=== PATIENT | female | born 1955 | race American Indian/Alaskan Native ===

== ENCOUNTER 2018-03-31 14:47 | Emergency (ER) | payer MEDICARE ==
[2018-03-31] MEDS ORDERED: XOPENEX IH ONE (16:21)
[2018-03-31] MEDS ORDERED: SOLU-Medrol IM ONE (16:21)
[2018-03-31] MEDS ORDERED: ATROVENT IH ONE (16:21)
--- NOTE | 2018-03-31 16:26 | Emergency Department Report ---
ED Asthma HPI - General Chief Complaint: Adult Asthma Stated Complaint: PAIN Time Seen by Provider: 03/31/18 16:09 Source: patient Mode of arrival: Ambulatory Limitations: No Limitations - History of Present Illness Initial Comments: Patient is 63 years old female history of asthma. Patient presented to the ER complaining of shortness of breath and wheezing associated with this productive cough greenish sputum for the last 2 weeks. Patient stated that she has been using her inhaler but is not helping. Patient denied any fever, nausea or vomiting. No chest pain. MD Complaint: "asthma attack", shortness of breath, wheezing -: week(s) Severity: moderate Context: recent URI Associated Symptoms: productive cough Treatments Prior to Arrival: inhaled bronchodilator - Related Data Allergies Allergy/AdvReac Type Severity Reaction Status Date / Time No Known Allergies Allergy Unverified 03/31/18 15:21 ED Review of Systems ROS: Stated complaint: PAIN Other details as noted in HPI Comment: All other systems reviewed and negative Constitutional: denies: chills, fever Respiratory: cough, shortness of breath, SOB at rest, wheezing. denies: orthopnea, SOB with exertion, stridor Cardiovascular: denies: chest pain, palpitations Gastrointestinal: denies: abdominal pain, nausea Neurological: denies: headache, weakness, numbness, paresthesias, confusion ED Past Medical Hx - Past Medical History Hx Asthma: Yes - Surgical History Past Surgical History?: No - Social History Smoking Status: Never Smoker Substance Use Type: None ED Physical Exam - General Limitations: No Limitations General appearance: alert, in no apparent distress - Head Head exam: Present: atraumatic, normocephalic, normal inspection - Eye Eye exam: Present: normal appearance - ENT ENT exam: Present: normal exam, normal orophraynx, mucous membranes moist - Neck Neck exam: Present: normal inspection, full ROM. Absent: tenderness, meningismus, lymphadenopathy, thyromegaly - Respiratory Respiratory exam: Present: wheezes, decreased breath sounds, prolonged expiratory. Absent: respiratory distress, rales, rhonchi, stridor - Cardiovascular Cardiovascular Exam: Present: regular rate. Absent: normal rhythm, bradycardia , tachycardia, irregular rhythm, normal heart sounds, systolic murmur, diastolic murmur - GI/Abdominal GI/Abdominal exam: Present: soft, normal bowel sounds. Absent: distended, tenderness, guarding, rebound, rigid, organomegaly, mass, bruit, pulsatile mass , hernia - Extremities Exam Extremities exam: Present: normal inspection, full ROM, normal capillary refill. Absent: tenderness, pedal edema, joint swelling, calf tenderness - Back Exam Back exam: Present: normal inspection, full ROM - Neurological Exam Neurological exam: Present: alert, oriented X3, CN II-XII intact, normal gait, reflexes normal - Skin Skin exam: Present: warm, intact, normal color ED Course Vital Signs 03/31/18 03/31/18 15:21 16:39 Temperature 98.2 F Pulse Rate 99 H Pulse Rate [ 102 H Posterior Bilateral Throughout] Respiratory 16 Rate Respiratory 20 Rate [Posterior Bilateral Throughout] Blood Pressure 210/87 O2 Sat by Pulse 96 Oximetry ED Medical Decision Making - Radiology Data Radiology results: report reviewed Referring Physician: OCTAVIA VALDIVIA Patient Name: MICHAEL LAWSON Date of : 1955 Sex: Female Report Date: 2018-03-31 Report Status: Finalized Findings [address] [address] XRay Report Signed Patient: MICHAEL LAWSON MR#: [id number] : 1955 Acct:[id number] Age/Sex: 63 / F ADM Date: 03/31/18 Loc: ED Attending Dr: Ordering Physician: OCTAVIA VALDIVIA Date of Service: 03/31/18 Procedure(s): XR chest 1V ap Accession Number(s): [id number] cc: OCTAVIA VALDIVIA Fluoro Time In Minutes: FINAL REPORT EXAM: XR CHEST 1V AP HISTORY: sob TECHNIQUE: PA chest x-ray Comparison: None FINDINGS: Normal heart size. Low lung volumes with mild hypoventilatory change at the bases. No focal infiltrate. Hilar contours within normal limits. IMPRESSION: Hypoventilatory changes. No definite acute cardiopulmonary disease. Transcribed By: JUDE Dictated By: SHAMEKA PIÑA Electronically Authenticated By: SHAMEKA PIÑA Signed Date/Time: 03/31/181710 DD/ 10 TD/TT: 03/31/181710 Critical care attestation.: If time is entered above; I have spent that time in minutes in the direct care of this critically ill patient, excluding procedure time. ED Disposition Clinical Impression: Asthma exacerbation, Acute bronchitis Disposition: - TO HOME OR SELFCARE Is pt being admited?: No Condition: Stable Instructions: Asthma (ED), Acute Bronchitis (ED) Referrals: PRIMARY CARE, [Primary Care Provider] - 3-5 Days
[2018-03-31] MEDS ORDERED: PROVENTIL IH ONE ×2 (16:32→16:33)
[2018-03-31] MEDS ORDERED: LEVALBUTEROL IH ONE (16:45)
--- NOTE | 2018-03-31 17:19 | XRay Report ---
FINAL REPORT EXAM: XR CHEST 1V AP HISTORY: sob TECHNIQUE: PA chest x-ray Comparison: None FINDINGS: Normal heart size. Low lung volumes with mild hypoventilatory change at the bases. No focal infiltrate. Hilar contours within normal limits. IMPRESSION: Hypoventilatory changes. No definite acute cardiopulmonary disease.
[2018-03-31 17:48] VITALS: BP 191/80
== END 2018-03-31 17:48 | disposition home or self-care (01) ==
LOC: ED 14:47
DX: J45.901 Unspecified asthma with (acute) exacerbation (principal); J20.9 Acute bronchitis, unspecified
CPT/HCPCS: 71045; 94640; 96372; 99283; J2930